=== PATIENT | female | born 1985 | race Caucasian/White ===

== ENCOUNTER 2016-11-09 09:00 | Outpatient (CLI) | payer OTHER ==
[~2016-11-09] VITALS: Ht 165.1 cm; Wt 105.6 kg
[2016-11-09] MEDS ORDERED: PRENTAB26 PO (09:35)
[2016-11-09 09:36] VITALS: Ht 165.1 cm; Wt 105.6 kg
[2016-11-09 10:09] LABS: BASO % 0.2 %; BASO ABS # 0.02 K/uL (0-0.2); COMPLETE YES; EOS % 1.1 %; HEMATOCRIT 33.9 % (37-47); IG% 0.5 %; LYMPH % 20.6 %; LYMPH ABS # 1.98 K/uL (1.2-3.4); MEAN CELL VOLUME 91.1 fL (80-100); MEAN CORPUSCULAR HEMOGLOBIN 30.9 pg (25-34); MEAN CORPUSCULAR HGB CONC 33.9 g/dl (32-36); MEAN PLATELET VOLUME 10.4 fL (7.4-10.4); MONO % 3.8 %; NEUT % 73.8 %; PLATELET COUNT 204 K/uL (130-400); RED BLOOD COUNT 3.72 M/uL (4.2-5.4); WHITE BLOOD COUNT 9.62 K/uL (4.8-10.8)
--- NOTE | 2016-11-09 10:46 | DIAGNOSTIC IMAGING REPORT ---
Limited ultrasound LIMITED (US) CLINICAL HISTORY: PLACENTA placenta location TECHNIQUE: Ultrasound COMPARISON STUDY: None FINDINGS: Posterior placenta. Partial placenta previa. No evidence for abruptio placenta. Single, viable intrauterine . Estimated gestational age 22 weeks. Amniotic fluid and neck 11.4 cm. IMPRESSION: Partial posterior placenta previa versus immediately adjacent placenta. No evidence for abruptio placenta. Electronically signed by: James Horn M.D. 11/09/2016 10:44 AM Dictated Date/Time: 11/09/2016 10:42 AM
[2016-11-09 10:49] LABS: INR 0.9 (0.9-1.1)
[2016-11-09 10:57] LABS: URINE APPEARANCE CLEAR (CLEAR); URINE BILIRUBIN NEG (NEG); URINE COLOR YELLOW; URINE EPITHELIAL CELL AUTO >30 /lpf (0-5); URINE NITRITE NEG (NEG); URINE PH 6.5 (4.5-7.5); URINE SPECIFIC GRAVITY 1.005 (1.000-1.030); UROBILINOGEN NEG (NEG); ZZUR CULT IF INDIC CLEAN CATCH NO
[2016-11-09 11:16] LABS: MANUAL MICROSCOPIC REQUIRED? NO; REVIEW REQ? NO
--- NOTE | 2016-11-09 13:43 | Discharge Instructions ---
Discharge Instructions Date of Service Nov 09, 2016. Admission Reason for Admission: Pre Term Bleeding Discharge Discharge Diagnosis / Problem: Vaginal bleeding Discharge Goals Goal(s): Continuing OB care Activity Recommendations Activity Limitations: as noted below Lifting Limitations: no more than 10 pounds May Resume Sexual Activity: after follow-up appointment Shower/Bathe: no limitations Driving or Machine Use: no limitations ACTIVITY RECOMMENDATIONS: See Labor Sheet. SPECIAL CARE INSTRUCTIONS: Call Doctor if: * Regular contractions every 5 minutes or greater than 4 contractions in one hour. * Bleeding * Water breaks or is leaking * Decreased movement * Fever >100.4 degrees F * Pain not relieved by routine measures or pain medication ordered. FOLLOW UP VISIT: Return to Labor and Delivery on for /call for appointment time . Follow-up Visit with: BRAEDEN Stock When: 11/12/16 AT 0830 . Current Hospital Diet Patient's current hospital diet: Clear Liquid Diet Discharge Diet Recommended Diet: Regular Diet Pending Studies Studies pending at discharge: yes (FOLLOW UP US) List of pending studies: FOLLOW UP US Medical Emergencies . Who to Call and When: Medical Emergencies: If at any time you feel your situation is an emergency, please call 911 immediately. . Non-Emergent Contact Non-Emergency issues call your: Surgeon Call Non-Emergent contact if: temperature is above 100.5, your pain is not controlled . . "Provider Documentation" section prepared by Domitila Ortega. . VTE Core Measure Inpt VTE Proph given/why not?: Treatment not indicated
== END 2016-11-09 13:55 | disposition home or self-care (01) ==
LOC: C.OPB 09:00 → C.LD 09:00 → C.OPB 13:55
PROVIDERS: ATTEND Obstetrics & Gynecology
DX: O46.92 Antepartum hemorrhage, unspecified, second trimester (principal); O99.212 Obesity complicating pregnancy, second trimester; E66.9 Obesity, unspecified; Z3A.22 22 weeks gestation of pregnancy

== ENCOUNTER 2017-03-20 23:36 | Inpatient (IN) | payer OTHER ==
[~2017-03-20] VITALS: Ht 165.1 cm; Wt 104.5 kg
[~2017-03-20 23:36] MED LIST: PRENTAB26 PO
[2017-03-21] MEDS ORDERED: ACETAMINOPHEN 325 MG TAB PO PRN ×2 (00:15→16:15)
[2017-03-21 00:40] VITALS: BMI 37.2
[2017-03-21] MEDS ORDERED: IV FLUIDS COMPLETED PRN (04:45)
[2017-03-21] MEDS ORDERED: LACTATED RINGER'S 1000ML 1,000 ML IV PRN (09:28)
[2017-03-21] MEDS ORDERED: LACTATED RINGER'S 1000ML 1,000 ML IV SCH ×2 (09:28→16:05)
--- NOTE | 2017-03-21 09:34 | Progress Note ---
Progress Note Date of Service Mar 21, 2017. Progress Note Admit Note 31 W F [id number] at 41 weeks with onset of labor yesterday. GDM on diet control. GBS is negative. FHT Cat 1. Cervix now 4/90/-2/vertex/soft. EFW is 8.5 lbs. Will admit in early labor and planning for epidural for pain relief.
[2017-03-21 09:55] LABS: HEMATOCRIT 37.2 % (37-47); MEAN CORPUSCULAR HEMOGLOBIN 29.8 pg (25-34); MEAN CORPUSCULAR HGB CONC 32.8 g/dl (32-36); MEAN PLATELET VOLUME 11.3 fL (7.4-10.4); PLATELET COUNT 233 K/uL (130-400); RED BLOOD COUNT 4.09 M/uL (4.2-5.4); WHITE BLOOD COUNT 9.98 K/uL (4.8-10.8)
[2017-03-21 09:58] VITALS: Ht 165.1 cm; Wt 104.5 kg
[2017-03-21] MEDS ORDERED: FENTANYL 2MCG/ML ROPIV 1.25MG/ML 100ML BAG EPI ONE (10:15)
[2017-03-21] MEDS ORDERED: BUPIVACAINE 0.25% 30 ML VIAL ONE (10:15)
[2017-03-21] MEDS ORDERED: EpHEDrine SULFATE INJ 50 MG/ML AMP ONE (10:15)
[2017-03-21] MEDS ORDERED: FENTANYL CITRATE INJ 50 MCG/1 ML 2 ML VIAL ONE (10:16)
[2017-03-21] MEDS ORDERED: LACTATED RINGER'S 1000ML 500 ML IV PRN ×2 (11:54→12:33)
[2017-03-21] MEDS ORDERED: OXYTOCIN 30 UNITS/500ML NSS IV PRN ×2 (12:00→16:15)
[2017-03-21] MEDS ORDERED: NALOXONE HCL INJ 1 MG in SODIUM CHLORIDE 0.9% 1000ML 1,000 ML IV PRN (12:33)
[2017-03-21] MEDS ORDERED: ONDANSETRON INJ 2 MG/ML 2 ML VIAL IV PRN (12:45)
[2017-03-21] MEDS ORDERED: DiphenhydrAMINE HCL 50 MG/ML VIAL IV PRN (12:45)
[2017-03-21] MEDS ORDERED: NALOXONE HCL INJ 0.4 MG/1 ML VIAL/CARP IV PRN (12:45)
[2017-03-21] MEDS ORDERED: FENTANYL 2MCG/ML ROPIV 1.25MG/ML 100ML BAG EPI PRN (12:45)
[2017-03-21] MEDS ORDERED: NALBUPHINE HCL INJ 10 MG/ML AMP IV PRN (12:45)
[2017-03-21] MEDS ORDERED: EpHEDrine SULFATE INJ 50 MG/ML AMP IV PRN (12:45)
--- NOTE | 2017-03-21 16:11 | Vaginal Delivery Summary ---
Vaginal Delivery Summary live female BETH over intact perineum with Apgars 8/9 weight pending. Delayed cord clamping followed by cord blood and spontaneous delivery of intact placenta. EBL 250 ml. No tears. Final, sponge and instrument count are correct. Mom and baby stable.
[2017-03-21] MEDS ORDERED: IBUPROFEN 600 MG TAB PO PRN (16:15)
[2017-03-21] MEDS ORDERED: BENZOCAINE 20% AER SPR 82.5 GM CAN EXT PRN (16:15)
[2017-03-21] MEDS ORDERED: LANOLIN OINT EXT PRN ×2 (16:15)
[2017-03-21] MEDS ORDERED: MEASLES, MUMPS & RUBELLA VIRUS VIAL SQ. ONE (16:15)
[2017-03-21] MEDS ORDERED: HYDROCORTISONE ACETATE 25 MG SUPP PR PRN (16:15)
[2017-03-21] MEDS ORDERED: SUPERCREAM 0.870 % 15GM JAR EXT PRN (16:15)
[2017-03-21] MEDS ORDERED: DIPHTHERIA/TETANUS/PERTUSSIS 0.5 ML SYR/VIAL IM. ONE (16:15)
--- NOTE | 2017-03-21 16:49 | Anesthesia Procedure Note ---
Anesthesia Epidural Removal Nt Date & Time Mar 21, 2017 at 16:48 Vital Signs Pain Intensity: 0.0 Notes Mental Status: alert / awake / arousable, participated in evaluation Nausea / Vomiting: adequately controlled Pain: adequately controlled Airway Patency, RR, SpO2: stable & adequate BP & HR: stable & adequate Hydration State: stable & adequate Neuraxial Anesthesia: was administered, sensory block is resolving Anesthetic Complications: no major complications apparent, pt satisfied with anesthetic care Epidural: removed without complications, with tip intact
[2017-03-21 19:00] VITALS: BP 120/70; PULSE 112; TEMP 37.1
[2017-03-21] MEDS: DOCUSATE SODIUM 100 MG CAP PO SCH (20:00)
[2017-03-22] VITALS: BP 120/78; PULSE 87; TEMP 36.9
[2017-03-22 04:35] VITALS: BP 105/55; PULSE 83; TEMP 36.9
[2017-03-22 06:00] LABS: HEMATOCRIT 30.9 % (37-47)
[2017-03-22 08:00] VITALS: BP 115/77; PULSE 87; TEMP 37.2; O2SAT 97
[2017-03-22] MEDS: DOCUSATE SODIUM 100 MG CAP PO SCH ×2 (08:48→19:42)
[2017-03-22] MEDS: PRENATAL VITAMIN TAB PO SCH (08:48)
[2017-03-22] MEDS: FERROUS SULFATE 325 MG TAB PO SCH (08:48)
--- NOTE | 2017-03-22 11:36 | OB/GYN Progress Note ---
COMMUNICATIONS ATTENDANT Progress Note Date of Service Mar 22, 2017. Subjective conversation w/ patient, physical exam Ambulation: ambulating normally Voiding: no voiding problems Passing Gas: Yes Diet Tolerance: Regular Diet Lochia: Small Feeding Type: Breast Feeding Pain: 08/30 Notes: Doing well, no concerns. Pain well controlled. Tolerating regular diet. Ambulating without difficulty. Objective Vital Signs Date Time Temp Pulse Resp B/P (MAP) Pulse Ox O2 Delivery O2 Flow Rate FiO2 03/22/17 08:00 Room Air 03/22/17 08:00 37.2 87 16 115/77 (90) 97 Room Air 03/22/17 04:35 36.9 83 16 105/55 (72) 03/22/17 00:00 Room Air 03/22/17 00:00 36.9 87 18 120/78 (92) 03/21/17 19:00 Room Air 03/21/17 19:00 37.1 112 18 120/70 (87) Physical Exam General Appearance: WELL-APPEARING Respiratory/Chest: chest non-tender, lungs clear Cardiovascular: regular rate, rhythm Abdomen: normal bowel sounds, soft Fundus: Firm Extremities: normal range of motion, non-tender, no calf tenderness Laboratory Results Last 24 Hours Test 03/22/17 05:34 Hemoglobin 9.9 g/dL Hematocrit 30.9 % Assessment and Plan Post- Day Number: 1 Continue Routine Care: -Continue routine care -Anticipate D/C home tomorrow.
[2017-03-22 11:45] VITALS: BP 129/74; PULSE 82; TEMP 37.2; O2SAT 95
[2017-03-22 16:15] VITALS: BP 109/73; PULSE 100; TEMP 37.1; O2SAT 96
[2017-03-22] MEDS ORDERED: BISACODYL 5 MG TABEC PO ONE (20:00)
[2017-03-23 00:25] VITALS: BP 118/77; PULSE 92; TEMP 36.8; O2SAT 95
[2017-03-23] MEDS ORDERED: BISACODYL 10 MG SUPP PR PRN (07:00)
[2017-03-23] MEDS: DOCUSATE SODIUM 100 MG CAP PO SCH (08:33)
[2017-03-23] MEDS: FERROUS SULFATE 325 MG TAB PO SCH (08:33)
[2017-03-23] MEDS: PRENATAL VITAMIN TAB PO SCH (08:34)
[2017-03-23 09:35] VITALS: BP 110/68; PULSE 87; TEMP 36.7; O2SAT 95
--- NOTE | 2017-03-23 09:38 | OB/GYN Progress Note ---
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 Patient is seen and examined. She feels well, no complaints. Likes to be discharged Ambulating without dizziness Voiding without difficulty Tolerating regular diet with out N&V Bleeding is minimal No fever/ chills/ CP/ SOB/ N&V/ Leg pain Breast feeding without problems Discussed contraception She likes to talk to her valet runner oncologist to decide on that H/o ovarian neoplasm and CAH of endometrium Date Time Temp Pulse Resp B/P (MAP) Pulse Ox O2 Delivery O2 Flow Rate FiO2 03/23/17 00:25 36.8 92 18 118/77 (91) 95 Room Air 03/23/17 00:25 Room Air 03/22/17 16:15 37.1 100 18 109/73 (85) 96 Room Air 03/22/17 16:15 Room Air 03/22/17 11:45 37.2 82 18 129/74 (92) 95 Room Air Test 03/20/17 23:49 03/21/17 09:37 03/22/17 05:34 POC Glucose 81 White Blood Count 9.98 Red Blood Count 4.09 L Hemoglobin 12.2 9.9 L Hematocrit 37.2 30.9 L Mean Corpuscular Volume 91.0 Mean Corpuscular Hemoglobin 29.8 Mean Corpuscular Hemoglobin Concent 32.8 RDW Standard Deviation 49.0 H RDW Coefficient of Variation 14.6 H Platelet Count 233 Mean Platelet Volume 11.3 H PE: General: Alert, orientedx3, NAD Abd: soft, NT, fundus firm, below Umbilicus Perineum intact, Lochia rubra minimal Ext; NT, no edema AP: 31 yo s/p , ppd# 2 VSS Afebrile doing well Continue routine care All questions were answered D/C home , f/u in office
[2017-03-23] MEDS ORDERED: FRRS300 PO (09:39)
[2017-03-23] MEDS ORDERED: CLC100 PO (09:39)
[2017-03-23] MEDS ORDERED: MTR600X PO (09:39)
--- NOTE | 2017-03-23 09:40 | Discharge Instructions ---
Discharge Instructions Date of Service Mar 23, 2017. Admission Reason for Admission: Prolonged Latent Phase Of Labor Discharge Discharge Diagnosis / Problem: Discharge Goals Goal(s): Routine recovery after delivery Activity Recommendations Activity Limitations: as noted below ACTIVITY RECOMMENDATIONS: * Gradual return to full activity over the next 2-3 weeks. * No lifting - nothing heavier than baby over the next 2-3 weeks. * Do not engage in vigorous exercise, sexual activity or sports until cleared by your physician. * Do not drive or operate any motorized equipment until cleared by your physician. * You may shower/bathe daily. BREAST CARE: If you are not breast feeding: * Wear a supportive bra 24 hours a day for one to two weeks. * Avoid stimulating your breasts and nipples as much as possible during the first few weeks after delivery. * When taking a shower, have the warm water hit your back, not breasts. * When your breasts feel full, apply ice packs. Usually three to four times a day helps ease the discomfort. * Take a mild pain medication (Tylenol/Motrin) when you are uncomfortable. If breast feeding: * Use breast milk to lubricate nipples. Lansinoh cream may be used for sore nipples. You do not need to remove cream prior to breast feeding. If using a different brand of cream, check the label for directions regarding removal of cream prior to nursing. * Wear a supportive bra. * If having problems with breasts or breast feeding, call a systems development consultant or your health care provider. EPISIOTOMY CARE: After delivery, if you have an episiotomy (stitches), the following steps will ease discomfort and aid healing. * For the first 24 hours after delivery, place ice packs next to your episiotomy to help reduce swelling. * After the first 24 hour-period, sitz baths, either portable or in the tub, are suggested. A shower with a shower arm sprayed over the episiotomy may be comforting. * Jessy care should be done after each voiding and bowel movement. Squirt warm water from a plastic bottle over the perineum (region of the body between the anus and urinary opening) and pat dry. * Use Dermoplast to ease discomfort. Shake container. [place] directly over the episiotomy. * Place a Tucks on a clean sanitary pad next to your episiotomy. OVER THE COUNTER MEDICATION: * For discomfort or pain, you may use Acetaminophen (Tylenol), Ibuprofen (Advil ), or Naproxen (Aleve) following the package directions. * For constipation you may use Colace following the package directions. SPECIAL CARE INSTRUCTIONS: When you are discharged from the hospital, it is important for you to follow the instructions listed below: * During the first week at home, you should be able to care for yourself and your baby. In addition, the usual light household activities are encouraged. * Limit your activities to the way you feel. Do not try to clean the house or move furniture. Be sensible. * If you actively engage in sports and have done so up until the time of your delivery, you may resume these activities as soon as you feel able. This may take up to one month or even longer. Use good judgment. * Continue to take your vitamins for at least six weeks after the of your baby. * Your diet need not be limited unless you were on a special diet before your delivery. Breast-feeding mothers need around 2500 calories per day and at least 64-80 ounces of fluid per day (8 to 10 glasses). * You should eat foods from the four major food groups. Crash diets or fad diets are to be avoided. Eating lean meats, fresh fruits and vegetables, low-fat dairy products, high fiber foods and a regular exercise program, will help you get back to your pre- weight without putting your health at risk. * Constipation is sometimes a problem after delivery. Take a mild laxative as needed. If breast feeding, Milk of Magnesia is acceptable to use. You may use a suppository or Fleets enema if no episiotomy. * A daily shower or tub bath is suggested. Be sure to thoroughly and gently dry the perineum. * A bloody vaginal discharge will usually continue until around four weeks post . A small amount of bleeding may continue for as long as six weeks. Vaginal discharge changes from the bright red bleeding after delivery to pink then brownish and finally yellowish-pink before becoming white and disappearing. * Bleeding may increase with activity. Your first period may come in 4-8 weeks. If you are breast feeding, your period may be delayed even longer. * [place] (sex) can begin whenever both you and your partner feel comfortable and do not have any form of genital infection. It is recommended that you wait until after your return appointment and discuss with your physician. If you have questions, please talk to your health care practitioner. A condom should be used to prevent infection and . * Foreplay, gentle intercourse and lubrication is very important the first several times to prevent pain. A water-based lubricant such as K-Y jelly or Astroglide may be used. * Tampons may be used six weeks after delivery. * Douching should be avoided for 6 weeks after delivery. * If you have RH negative blood and your baby is RH positive, you will receive RHOGAM by injection prior to discharge. The nurse will give you a card to keep with you that has the date and place that you received RHOGAM after delivery. * During your care, you had a Rubella screen done to check for the presence of rubella antibodies in your blood. If your test was negative, you will receive a Rubella vaccine prior to discharge. This vaccine may cause a fever, soreness at the injection site and flu-like symptoms. If these symptoms persist, notify your health care practitioner. is not advised for three months after a Rubella vaccine. There is a higher chance of having a baby with defects if conceived within three months of getting the vaccine. * If you were discharged 24 hours from delivery or before 48 hours: Visiting nurses will come to your home 48 hours after discharge to assess you and your baby. The visiting nurse will meet with you while you are in the hospital to arrange a time and get directions to your home. * Verbalizes understanding of car seat law as reviewed with patient nursing. * Car Seat hand-out given and reviewed with patient by nursing. * Shaken baby information reviewed with patient by nursing. Call you doctor if: * Heavy bleeding (saturating several pads an hour) or passing clots the size of your fist. * A fever >101 degrees F (38.3 degrees C) on two occasions four hours apart and/or chills. * Unusual pain in the pelvic or vaginal areas. * "Baby Blues" lasting longer than two weeks. If you have any questions or concerns, call your health care practitioner at . FOLLOW-UP VISIT: * Please call the office at to schedule a 6 week examination. It is important you keep this appointment. * It is important for you to make arrangements for either yearly or twice yearly check-ups thereafter. . Current Hospital Diet Patient's current hospital diet: Regular Diet Discharge Diet Recommended Diet: Regular Diet Pending Studies Studies pending at discharge: no Medical Emergencies . Who to Call and When: Medical Emergencies: If at any time you feel your situation is an emergency, please call 911 immediately. . Non-Emergent Contact Non-Emergency issues call your: Surgeon, Specialist Call Non-Emergent contact if: temperature is above 100.5, your pain is not controlled, your pain is worsening . . "Provider Documentation" section prepared by Domitila Ortega. . VTE Core Measure Inpt VTE Proph given/why not?: Treatment not indicated
== END 2017-03-23 12:21 | disposition home or self-care (01) | DRG 775 ==
LOC: C.OPB 23:36 → C.LD 23:36 → C.OPB 03-21 04:06 → OBSVTOIN 03-21 09:30 → C.OBG 03-21 18:59
PROVIDERS: ADMIT Obstetrics & Gynecology; ATTEND Obstetrics & Gynecology
PROC: 10E0XZZ Delivery of Products of Conception, External Approach (ICD-10-PCS; principal; 2017-03-21)
DX: O48.0 Post-term pregnancy (principal); O24.420 Gestational diabetes mellitus in childbirth, diet controlled; Z3A.40 40 weeks gestation of pregnancy; O99.214 Obesity complicating childbirth; Z68.38 Body mass index [BMI] 38.0-38.9, adult

== ENCOUNTER 2022-06-02 17:05 | Inpatient (IN) ==
--- NOTE | 2022-06-04 09:16 | History & Physical Report ---
Date of Service June 04, 2022 Assessment & Plan (1) Post-dates : Plan: 36-year-old -0-0-2 at 41 weeks and 3 days of gestation with gestational diabetes, diet-controlled, obesity, LGA Vital signs stable afebrile heart rate reassuring, Cervix unfavorable with no presenting part presenting part in pelvic, confirmed vertex by US but very high Estimated weight 4700 g, discussed the findings with the patient as with gestational diabetes, postdates, macrosomia and increased risk of shoulder dystocia. ACOG recommendation of primary with EFW of over 4500 g with diabetes. Discussed shoulder dystocia may cause nerve injury, fractures, and brachyal plexus palsy, asphyxia, hypoxic ischemic brain injury of infant. Understands EFW with US is not 100% accurate, up to 10-15% of false rate. Patient desires to think about this and decide. All questions were answered. (2) Gestational diabetes mellitus (GDM) affecting , antepartum: (3) Obesity affecting in third trimester, antepartum: (4) LGA (large for gestational age) fetus affecting mother, antepartum: Admission and Anticipated Discharge Date Admission Date: June 04, 2022 History of Present Illness Primary Care Provider: NO PCP Patient is a 36-year-old -0-0-2 at 41 weeks and 3 days of gestation who is presenting today for induction of labor for postdates, GDM A1, obesity. She has no complaints, no contractions, leakage of fluid, vaginal bleeding. She reports good movements. She was scheduled for induction on , 2 days ago but she declined to come in because she thought she was in early labor with contractions which then stopped. Patient politely declined induction of labor since 39 weeks per records. Her has been complicated by, 1.Obesity, 2. Gestational diabetes, diet controlled , she has not been doing fingersticks, they have been normal for her, 3. LGA, last ultrasound was done at 37 weeks and baby was over 90th percentile, 4. History of ovarian cancer and complex endometrial hyperplasia, status post excision of right adnexal mass patient has been followed by mortgage loan officer originator and she has been cleared. 5. Advanced maternal age, declined MFM consultation. Allergies Allergy/AdvReac Type Severity Reaction Status Date / Time No Known Allergies Allergy Unverified 03/21/17 00:41 Home Medications Medication Instructions Recorded Confirmed Type Multivit/Min/Iron/Fol Ac/Pren 1 tab PO DAILY #0 tabs 11/09/16 06/04/22 History ( Vitamin) Docusate Sodium 100 mg PO BID #60 caps 03/23/17 06/04/22 Rx Patient History Social History Smoking Status: Never smoker Hx Alcohol Use: No Hx Substance Use: No Preferred Language: German Communication Ability: Effective Steam Setter Required: No Beliefs That Will Affect Care: None marital status: Current Living Situation: Spouse Other Information That Helps Us Care for You: No Feels Safe at Home: Yes Safety Concerns: Feels Safe At This Time Assistive Devices: None OB History Full-term in 2011, 41 weeks, 8 pounds 10 ounces, no complications, Full-term in 2017, 45 weeks, 9 pound 3 ounces, gestational diabetes, no shoulder dystocia CLIENT DEVELOPMENT MANAGER History No history of STDs, no history of herpes, chlamydia NOR gonorrhea Review of Systems as per Subjective / HPI Physical Exam Constitutional: WD/WN, vitals as above well developed, well nourished, + obese and comfortable Gastrointestinal (Abdomen): normal bowel sounds, soft, nontender, no hepatosplenomegaly (Gravid, obese) Genitourinary: normal external appearance Manual OB Exam: + cervical dilation fingertip, + cervical effacement 10% and + station high (No presenting part in pelvis) OB Exam Monitor Tracing: + external uterine monitor used and + category I Bedside ultrasound was done by myself, vertex presentation, all the measurements are over 41 weeks, estimated weight 4700 g, placenta anterior, amniotic fluid volume is normal. Results & Data ([facility]) Vital Signs (Past 12 Hours) Vital Signs Temp Pulse Resp BP 06/04/22 07:59 36.7 C 18 06/04/22 08:22 130 H 130/83 06/04/22 07:51 107 H 162/92 H (1) Post-dates Post-term type: 40-42 weeks gestation Qualified Code(s): O48.0 - Post-term
[2022-06-04] MEDS ORDERED: SODIUM CHLORIDE 0.9% 250 ML IV PRN (09:29)
[2022-06-04 09:46] LABS: Basophils # (auto) 0.03 K/uL (0-0.2); Basophils % (auto) 0.3 %; Eosinophils # (auto) 0.07 K/uL (0-0.50); Eosinophils % (auto) 0.8 %; Hemoglobin 12.7 g/dl (12.0-16.0); Immature Granulocytes # (auto) 0.07 K/uL (0.00-0.02); Immature Granulocytes % (auto) 0.8 %; Lymphocytes # (auto) 1.86 K/uL (1.2-3.4); Lymphocytes % (auto) 21.1 %; Mean Corpuscular Hemoglobin 30.4 pg (25.0-34.0); Mean Corpuscular Hgb Conc 34.3 g/dL (32.0-36.0); Mean Corpuscular Volume 88.5 fL (80.0-100.0); Mean Platelet Volume 11.9 fL (9.4-12.3); Monocytes % (auto) 6.8 %; Neutrophils % (auto) 70.2 %; Platelet Count 203 K/uL (130-400); RDW Coefficient of Variation 13.4 % (11.5-14.5); RDW Standard Deviation 43.5 fL (36.4-46.3); Red Blood Count 4.18 M/uL (3.93-5.22); White Blood Count 8.83 K/ul (4.8-10.8)
[2022-06-04] MEDS ORDERED: LIDOCAINE 1% LOCAL 20 ML VIAL INFIL PRN (09:49)
[2022-06-04] MEDS ORDERED: OXYTOCIN 30 UNITS/500 ML BAG IV PRN (09:49)
[2022-06-04 10:23] LABS: Albumin Globulin Ratio 1.2 (0.9-2); Albumin Level 3.4 gm/dl (3.4-5.0); BUN Creatinine Ratio 18.9 (10-20); Bilirubin,Total 0.3 mg/dl (0.2-1.0); Calcium 8.9 mg/dl (8.5-10.1); Creatinine Clr Calc Pharmacy 132.1 ml/min; Est GFR (African American) 119.1 ml/min; Est GFR (Non-African American) 102.8 ml/min; Globulin 2.9 gm/dl (2.5-4.0); Potassium 3.7 mmol/L (3.5-5.1); Total Protein 6.3 gm/dl (6.0-8.3)
[2022-06-04 12:22] LABS: Estimated Average Glucose 114 mg/dl; Hemoglobin A1C 5.6 % (4.5-5.6)
[2022-06-04] MEDS ORDERED: DINOPROSTONE 10 MG INSERT PV ONE (13:15)
--- NOTE | 2022-06-04 13:16 | Ultrasound Report ---
ULTRASOUND LIMITED CLINICAL HISTORY: Suspect macrosomia. COMPARISON STUDY: No priors. FINDINGS: Real-time grayscale and color Doppler sonography of the fetus and gravid uterus is performed. There i s a single live uterine gestation with a heart rate of 155 bpm. Positioning is cephalic. The placenta is located laterally on the left and grossly unremarkable. The cervix is not well visualized. The la rgest pocket of amniotic fluid measures 10.1 cm. Femoral length measures 8.47 cm. This measurement is out of range for calculation of dates. The abdominal circumference measures 36.67 cm corresponding to an estimated age of 40 weeks 4 days. The biparietal diameter measures 10.29 cm which is out of range for calculation of dates. The head circumference measures 37.55 cm which is out of range for calculation of dates. weight is estimated at 4607 g +/-691 g. Estimation of dates is 40 weeks 5 days +/- 3 weeks 5 days. IMPRESSION: 1. There is a single live intrauterine gestation with measurements as above. 2. The largest pocket of amniotic fluid measures 10.1 cm. 3. Note that this does not constitute a dedicated anatomic scan. Dictated: 06/04/2022 11:56 AM Transcribed: 06/04/2022 12:56 PM Alvina [id number] [email or web address] Electronically signed by: Yung Padgett M.D. 06/04/2022 1:15 PM
--- NOTE | 2022-06-04 13:27 | Obstetrical Progress Note ---
Date of Service June 04, 2022 Assessment & Plan Admission and Anticipated Discharge Date Admission Date: June 04, 2022 Subjective Patient is back from ultrasound. There is a single live uterine gestation with a heart rate of 155 bpm. Positioning is cephalic. The placenta is located laterally on the left and grossly unremarkable. The cervix is not well visualized. The largest pocket of amniotic fluid measures 10.1 cm. Femoral length measures 8.47 cm. This measurement is out of range for calculation of dates. The abdominal circumference measures 36.67 cm corresponding to an estimated age of 40 weeks 4 days. The biparietal diameter measures 10.29 cm which is out of range for calculation of dates. The head circumference measures 37.55 cm which is out of range for calculation of dates. weight is estimated at 4607 g +/-691 g. Estimation of dates is 40 weeks 5 days +/- 3 weeks 5 days. Discussed the results above EFW over 4500 g and recommend with gestational diabetes. Patient understands the risks of shoulder dystocia including but not limited to clavicle fracture, nerve injury, asphyxia even . She politely declines and desires trial of vaginal . Understands the presenting part is high and cervix is not favorable she will need cervical ripening. Plan to give her lunch and then start cervical ripening with Cervidil. All questions were answered. Results & Data ([facility]) Vital Signs (Past 12 Hours) Vital Signs Temp Pulse Resp BP 06/04/22 07:59 36.7 C 18 06/04/22 11:42 16 06/04/22 11:42 36.6 C 16 06/04/22 11:46 94 H 139/89 06/04/22 08:22 130 H 130/83 06/04/22 07:51 107 H 162/92 H
[2022-06-04] MEDS: LACTATED RINGER'S 1,000 ML IV PRN ×3 (18:12→23:42)
[2022-06-04] MEDS ORDERED: BUTORPHANOL TARTRATE 1 MG/ML VIAL IV PRN (19:46)
--- NOTE | 2022-06-04 20:02 | Obstetrical Progress Note ---
Date of Service June 04, 2022 Assessment & Plan Admission and Anticipated Discharge Date Admission Date: June 04, 2022 Subjective Patient is reevaluated. Cervidil was placed at 14:45 and started to have cramping, contractions arpund 6 pm, received bolus of IVF and they got better, pain is 5-6/10 No LOF/VB + FM'S FHR categ I VE; 3/ 30%/ -2, head is definitely down, tight bulging bag, cervidil is in place Continue to monitor closely IV Stadol for pain now and then Epidural Results & Data ([facility]) Vital Signs (Past 12 Hours) Vital Signs Temp Pulse Resp BP 06/04/22 19:00 18 06/04/22 19:00 36.9 C 18 06/04/22 19:04 83 130/80 06/04/22 14:47 83 18 109/61 06/04/22 11:42 16 06/04/22 11:42 36.6 C 16 06/04/22 11:46 94 H 139/89 06/04/22 08:22 130 H 130/83
[2022-06-04] MEDS ORDERED: SODIUM CHLORIDE 0.9% INJ 10 ML VIAL ONE (22:06)
[2022-06-04] MEDS ORDERED: ePHEDrine sulfate 50 MG/ML AMP ONE (22:06)
[2022-06-04] MEDS ORDERED: fentaNYL citrate 100 MCG/2 ML VIAL ONE (22:06)
[2022-06-04] MEDS ORDERED: fentaNYL 2MCG/ML ROPIVACAINE 1.25MG/ML 100 ML BAG EPI ONE (22:07)
[2022-06-04] MEDS ORDERED: LIDOCAINE 2%/EPINEPHRINE 1:200,000 20 ML SDV ONE (22:07)
[2022-06-04] MEDS ORDERED: BUPIVACAINE 0.25% 30 ML VIAL ONE (22:07)
[2022-06-04] MEDS ORDERED: NALOXONE HCL 1 MG in SODIUM CHLORIDE 0.9% 1000ML 1,000 ML IV PRN (23:00)
[2022-06-04] MEDS ORDERED: diphenhydrAMINE 50 MG/ML VIAL IV PRN (23:00)
[2022-06-04] MEDS ORDERED: ONDANSETRON INJ 2 MG/ML 2 ML VIAL IV PRN (23:00)
[2022-06-04] MEDS ORDERED: NALOXONE HCL 0.4 MG/1 ML VIAL/CARP IV PRN (23:00)
[2022-06-04] MEDS ORDERED: ePHEDrine sulfate 50 MG/ML AMP IV PRN (23:00)
[2022-06-04] MEDS ORDERED: fentaNYL 2MCG/ML ROPIVACAINE 1.25MG/ML 100 ML BAG EPI PRN (23:00)
[2022-06-04] MEDS ORDERED: NALBUPHINE HCL INJ 10 MG/ML AMP IV PRN (23:00)
--- NOTE | 2022-06-04 23:00 | Anesthesiology Consultation ---
Date of Service June 04, 2022 Assessment & Plan ASA ASA2 Proposed Anesthesia Anesthesia Type: Labor Epidural Risk / Benefits Reviewed With: PT / POA / Parent / Guardian, Accepts Plan and Informed Consent Obtained History Height/Weight Height: 5 ft 5 in Weight: 117.48 kg Allergies Allergy/AdvReac Type Severity Reaction Status Date / Time No Known Allergies Allergy Unverified 03/21/17 00:41 Medications Home Medications Medication Instructions Recorded Confirmed Last Taken Multivit/Min/Iron/Fol Ac/Pren 1 tab PO DAILY #0 tabs 11/09/16 06/04/22 06/02/22 ( Vitamin) Docusate Sodium 100 mg PO BID #60 caps 03/23/17 06/04/22 06/02/22 Active Medications Generic Name Dose Route Start Last Admin Trade Name Freq PRN Reason Stop Dose Admin Butorphanol Tartrate 1 mg 06/04/22 19:46 06/04/22 20:35 Butorphanol Tartrate 1 Mg/Ml Vial IV 07/04/22 19:45 1 mg Q3HWA PRN Administration Pain Lactated Ringer's 1,000 mls @ 150 mls/hr 06/04/22 09:49 06/04/22 22:45 Lr IV 06/06/22 09:48 150 mls/hr .[id number] PRN Infusion L&D Protocol Protocol Exercise / Class Metabolic Activity II 4-5 Yardwork/Stairs/Walk up hill Past Anesthesia History No Hx of Anesthesia Complications and No Family Hx of Anesthesia Complications History of PONV No Hx of PONV and No Hx of Motion Sickness Social History Smoking Status: Never smoker Hx Alcohol Use: No Hx Substance Use: No Review of Systems denies fever/cough/ colds/ chest pain/ SOB/ MATTEO denies MATTEO Physical Exam Vital Signs Last Vital Signs Temp 36.9 C 06/04/22 19:00 Pulse 99 H 06/04/22 22:56 Resp 22 06/04/22 22:50 BP 143/63 H 06/04/22 22:58 Pulse Ox 100 06/04/22 22:54 ENMT Mouth: no TMJ abnormality and no dentition abnormality Thyromental Distance: > or= 3.5 Finger Breadths Mallampati Class: II Neck neck extension not limited Respiratory normal respiratory effort; no respiratory distress Auscultation: lungs clear to auscultation bilaterally Cardiovascular Rate/Rhythm: regular rate and regular rhythm Neurologic moves all extremities Psychiatric Orientation: alert and oriented x 3 Testing Laboratory Results 06/04/22 09:20 06/04/22 09:20 Hemoglobin A1c 5.6 % (4.5-5.6) 06/04/22 09:20 Blood Type O Positive 06/04/22 09:20 Antibody Screen NEGATIVE 06/04/22 09:20 06/04/22 06/04/22 20:34 16:39 POC Glucose 79 89
--- NOTE | 2022-06-04 23:27 | Obstetrical Progress Note ---
Date of Service June 04, 2022 Assessment & Plan Admission and Anticipated Discharge Date Admission Date: June 04, 2022 Subjective Patient had SROM with light meconium fluid and then got more painful. Epidural was placed about 20 min ago, still painful. VE; 6-7 cm/ 80%/-1 FHR categ I Contractions q 2-[address] Pimentel is going to talk to her about doing spinal Continue to monitor closely Results & Data ([facility]) Vital Signs (Past 12 Hours) Vital Signs Temp Pulse Resp BP Pulse Ox 06/04/22 23:19 76 129/58 L 99 06/04/22 23:14 93 H 99 06/04/22 23:09 86 100 06/04/22 23:04 83 99 06/04/22 23:03 86 123/78 06/04/22 23:00 91 H 22 131/57 L 06/04/22 22:59 96 H 100 06/04/22 22:58 88 143/63 H 06/04/22 22:56 99 H 138/63 06/04/22 22:54 100 06/04/22 22:54 98 H 06/04/22 22:54 95 H 121/76 06/04/22 22:52 91 H 109/68 06/04/22 22:49 97 H 99 06/04/22 22:50 94 H 22 110/64 06/04/22 22:44 85 100 06/04/22 22:39 81 99 06/04/22 22:34 99 06/04/22 22:34 84 06/04/22 22:34 80 94 06/04/22 22:29 86 98 06/04/22 22:24 81 100 06/04/22 22:21 75 133/77 06/04/22 22:19 77 100 06/04/22 22:14 105 H 98 06/04/22 19:00 18 06/04/22 19:00 36.9 C 18 06/04/22 19:04 83 130/80 06/04/22 14:47 83 18 109/61 06/04/22 11:42 16 06/04/22 11:42 36.6 C 16 06/04/22 11:46 94 H 139/89
--- NOTE | 2022-06-05 00:01 | Communication Note ---
Date of Service: June 04, 2012 pt still painful after epidural. Pt unable to tolerate epidural placement. I decided to place a spinal. sterile prep/drape/gloves/mask. L3-l4 interspace. 25 gauge pencan advanced. csf free flowing. 1cc of 0.25% bupivicaine injected. no complications at this time.
--- NOTE | 2022-06-05 00:33 | Obstetrical Progress Note ---
Date of Service June 05, 2022 Assessment & Plan Admission and Anticipated Discharge Date Admission Date: June 04, 2022 Subjective Patient received spinal for pain, still feels contractions but not as painful as before. She is lying on her side and denies pressure nor urge to push. Continue to monitor closely. Nursing team is aware of LGA and possible impending shoulder dystocia. Results & Data ([facility]) Vital Signs (Past 12 Hours) Vital Signs Temp Pulse Resp BP Pulse Ox 06/05/22 00:29 70 91 06/05/22 00:00 20 06/05/22 00:00 20 06/05/22 00:24 68 91 06/05/22 00:19 69 92 06/05/22 00:20 68 172/83 H 06/05/22 00:14 70 93 06/05/22 00:09 69 91 06/05/22 00:07 69 88 L 06/05/22 00:04 73 99/57 L 97 06/04/22 23:59 78 96 06/04/22 23:54 73 89 L 06/04/22 23:49 66 91 06/04/22 23:50 70 20 94/53 L 88 L 06/04/22 23:40 20 06/04/22 23:40 36.7 C 20 06/04/22 23:44 69 95 06/04/22 23:43 77 131/51 L 06/04/22 23:39 84 100 06/04/22 23:34 79 121/59 L 99 06/04/22 23:29 93 H 98 06/04/22 23:26 89 82 L 06/04/22 23:24 75 97 06/04/22 23:19 76 129/58 L 99 06/04/22 23:14 93 H 99 06/04/22 23:09 86 100 06/04/22 23:04 83 99 06/04/22 23:03 86 123/78 06/04/22 23:00 91 H 22 131/57 L 06/04/22 22:59 96 H 100 06/04/22 22:58 88 143/63 H 06/04/22 22:56 99 H 138/63 06/04/22 22:54 100 06/04/22 22:54 98 H 06/04/22 22:54 95 H 121/76 06/04/22 22:52 91 H 109/68 06/04/22 22:49 97 H 99 06/04/22 22:50 94 H 22 110/64 06/04/22 22:44 85 100 06/04/22 22:39 81 99 06/04/22 22:34 99 06/04/22 22:34 84 06/04/22 22:34 80 94 06/04/22 22:29 86 98 06/04/22 22:24 81 100 06/04/22 22:21 75 133/77 06/04/22 22:19 77 100 06/04/22 22:14 105 H 98 06/04/22 19:00 18 06/04/22 19:00 36.9 C 18 06/04/22 19:04 83 130/80 06/04/22 14:47 83 18 109/61
[2022-06-05] MEDS ORDERED: DIPHTHERIA/TETANUS/PERTUSSIS 0.5mL SYR/VIAL (Age 7+yrs) IM ONE (01:34)
[2022-06-05] MEDS ORDERED: METHYLERGONOVINE MALEATE 0.2 MG/ML AMP IM ONE (01:34)
[2022-06-05] MEDS ORDERED: HYDROCORTISONE ACETATE 25 MG SUPP PR PRN (01:34)
[2022-06-05] MEDS ORDERED: OXYTOCIN 30 UNITS/500 ML BAG IV PRN (01:34)
[2022-06-05] MEDS ORDERED: oxyCODONE/ACETAMINOPHEN 5mg/325mg TAB PO PRN (01:34)
[2022-06-05] MEDS ORDERED: BENZOCAINE 20% AER SPR 82.5 GM CAN EXT PRN (01:34)
[2022-06-05] MEDS ORDERED: MEASLES, MUMPS & RUBELLA VIRUS VIAL SQ ONE (01:34)
[2022-06-05] MEDS ORDERED: bisacodyL 10 MG SUPP PR PRN (01:34)
[2022-06-05] MEDS ORDERED: ACETAMINOPHEN 325 MG TAB PO PRN (01:34)
--- NOTE | 2022-06-05 01:39 | Delivery Summary ---
Vaginal Delivery Summary Date of Service June 05, 2022 Vaginal Delivery Summary Patient felt pressure and desire to push. She was found to be fully dilated and head was at +3 station, the caput was visible at the introitus. She pushed through 1 contraction and delivered the head without difficulty. The shoulders came right after the head without any traction easily. The baby was handed off to the mother where mouth and nose were suctioned, the cord was clamped times and cut at 1 minute delay. The baby is vigorously moving and crying at that point. Then the vagina and perineum were checked for lacerations. There was a small first-degree laceration at the posterior fourchette. It was repaired with 2-0 Vicryl in a running fashion and excellent hemostasis was achieved. Rest of the vagina and labia were intact. The placenta was found to be the vagina, delivered spontaneously as intact and complete. Uterus was explored and found to be empty, the lower segment was cleared of all clots and debris's and IV oxytocin was started. Fundus became firm and EBL was 200 mL. The mom and the baby tolerated procedure well, the sponge needle and instrument count was correct x2. Baby was a viable female infant, Apgars 7/8 and weight is pending. No complications happened and I was present during whole procedure.
[2022-06-05] MEDS ORDERED: METHYLERGONOVINE MALEATE 0.2 MG/ML AMP ONE (01:53)
--- NOTE | 2022-06-05 02:03 | Anesthesia Procedure Note ---
Date of Service June 05, 2022 Anesthesia Post Epidural Note Vital Signs Vital Signs: Temp Pulse Resp BP Pulse Ox 36.6 C 78 18 114/55 L 99 06/05/22 01:25 06/05/22 01:49 06/05/22 01:40 06/05/22 01:49 06/05/22 00:59 Pain Intensity Bilateral Abdomen: Pain Intensity: 8 Notes Mental Status: alert / awake / arousable and participated in evaluation Nausea / Vomiting: adequately controlled Pain: adequately controlled Airway Patency, RR, SpO2: stable & adequate BP & HR: stable & adequate Hydration State: stable & adequate Neuraxial Anesthesia: was administered and sensory block is resolving Anesthetic Complications: no major complications apparent and Pt Satisfied with anesthetic care Epidural: Removed without complications and With tip intact
[2022-06-05] MEDS: IBUPROFEN 600 MG TAB PO PRN ×4 (03:43→23:43)
[2022-06-05] MEDS: PRENATAL VITAMIN 1 TAB PO SCH (07:51)
[2022-06-05] MEDS: FERROUS SULFATE 325 MG TAB PO SCH (07:52)
[2022-06-05] MEDS: DOCUSATE SODIUM 100 MG CAP PO SCH ×2 (07:52→20:52)
[2022-06-06 06:35] LABS: Hematocrit (blood only) 30.6 % (34.1-44.9); Hemoglobin 10.2 g/dl (12.0-16.0); Mean Corpuscular Hemoglobin 30.2 pg (25.0-34.0); Mean Corpuscular Hgb Conc 33.3 g/dL (32.0-36.0); Mean Corpuscular Volume 90.5 fL (80.0-100.0); Platelet Count 148 K/uL (130-400); RDW Coefficient of Variation 13.6 % (11.5-14.5); RDW Standard Deviation 44.8 fL (36.4-46.3); Red Blood Count 3.38 M/uL (3.93-5.22); White Blood Count 11.59 K/ul (4.8-10.8)
--- NOTE | 2022-06-06 07:24 | Obstetrical Progress Note ---
Date of Service June 06, 2022 Assessment & Plan (1) Normal course: Continue routine PP course Plan to d/c if baby is discharged Precautions given (2) Gestational diabetes mellitus (GDM) affecting , antepartum: Subjective Ambulation: ambulating normally Voiding: no voiding problems Passing Gas:: Yes Diet Tolerance:: regular diet Lochia:: Small Feeding Type:: breast feeding Current Pain Level(1-10): 0 Doing well, no complaints. Home today if baby is discharged Physical Exam Constitutional WD/WN, vitals as above Respiratory normal respiratory effort, lungs clear to auscultation Cardiovascular RRR, no murmur, no edema Gastrointestinal (Abdomen) normal bowel sounds, soft, nontender, no hepatosplenomegaly Skin no rashes, warm and dry Results & Data ([facility]) Vital Signs (Past 12 Hours) Vital Signs Temp Pulse Resp BP Pulse Ox O2 Del Method 06/05/22 23:04 36.5 C 81 18 120/88 100 Room Air Laboratory Results Laboratory Results WBC 11.59 K/ul (4.8-10.8) H 06/06/22 06:02 RBC 3.38 M/uL (3.93-5.22) L 06/06/22 06:02 Hgb 10.2 g/dl (12.0-16.0) L 06/06/22 06:02 Hct 30.6 % (34.1-44.9) L 06/06/22 06:02 MCV 90.5 fL (80.0-100.0) 06/06/22 06:02 MCH 30.2 pg (25.0-34.0) 06/06/22 06:02 MCHC 33.3 g/dL (32.0-36.0) 06/06/22 06:02 RDW Std Deviation 44.8 fL (36.4-46.3) 06/06/22 06:02 RDW Coeff of Ellen 13.6 % (11.5-14.5) 06/06/22 06:02 Plt Count 148 K/uL (130-400) 06/06/22 06:02 MPV 12.0 fL (9.4-12.3) 06/06/22 06:02 Immature Gran % (Auto) 0.8 % 06/04/22 09:20 Neut % (Auto) 70.2 % 06/04/22 09:20 Lymph % (Auto) 21.1 % 06/04/22 09:20 [place] % (Auto) 6.8 % 06/04/22 09:20 Eos % (Auto) 0.8 % 06/04/22 09:20 Baso % (Auto) 0.3 % 06/04/22 09:20 Neut # (Auto) 6.20 K/uL (1.4-6.5) 06/04/22 09:20 Lymph # (Auto) 1.86 K/uL (1.2-3.4) 06/04/22 09:20 [place] # (Auto) 0.60 K/uL (0.24-0.82) 06/04/22 09:20 Eos # (Auto) 0.07 K/uL (0-0.50) 06/04/22 09:20 Baso # (Auto) 0.03 K/uL (0-0.2) 06/04/22 09:20 Immature Gran # (Auto) 0.07 K/uL (0.00-0.02) H 06/04/22 09:20 Sodium 136 mmol/L (136-145) 06/04/22 09:20 Potassium 3.7 mmol/L (3.5-5.1) 06/04/22 09:20 Chloride 106 mmol/L (98-107) 06/04/22 09:20 Carbon Dioxide 21 mmol/L (21-32) 06/04/22 09:20 Anion Gap 9 (3-11) 06/04/22 09:20 BUN 14 mg/dl (6-23) 06/04/22 09:20 Creatinine 0.74 mg/dl (0.6-1.2) 06/04/22 09:20 Est Cr Clr Drug Dosing 132.1 ml/min 06/04/22 09:20 Est GFR ( Amer) 119.1 ml/min 06/04/22 09:20 Est GFR (Non-Af Amer) 102.8 ml/min 06/04/22 09:20 BUN/Creatinine Ratio 18.9 (10-20) 06/04/22 09:20 Glucose 91 mg/dl (70-99(Fasting)) 06/04/22 09:20 POC Glucose 79 mg/dl (70-99) 06/04/22 20:34 Estimat Average Glucose 114 mg/dl 06/04/22 09:20 Hemoglobin A1c 5.6 % (4.5-5.6) 06/04/22 09:20 Calcium 8.9 mg/dl (8.5-10.1) 06/04/22 09:20 Total Bilirubin 0.3 mg/dl (0.2-1.0) 06/04/22 09:20 AST 11 U/L (13-39) L 06/04/22 09:20 ALT 6 U/L (7-52) L 06/04/22 09:20 Alkaline Phosphatase 127 U/L (34-104) H 06/04/22 09:20 Total Protein 6.3 gm/dl (6.0-8.3) 06/04/22 09:20 Albumin 3.4 gm/dl (3.4-5.0) 06/04/22 09:20 Globulin 2.9 gm/dl (2.5-4.0) 06/04/22 09:20 Albumin/Globulin Ratio 1.2 (0.9-2) 06/04/22 09:20 SARS-CoV-2, RNA, NAAT NEGATIVE (NEGATIVE) 06/04/22 09:20 Blood Type O Positive 06/04/22 09:20 Antibody Screen NEGATIVE 06/04/22 09:20 Crossmatch See Detail 06/04/22 09:20 Impressions Obstetrics Ultrasound 06/04/22 09:49 ULTRASOUND LIMITED CLINICAL HISTORY: Suspect macrosomia. COMPARISON STUDY: No priors. FINDINGS: Real-time grayscale and color Doppler sonography of the fetus and gravid uterus is performed. There is a single live uterine gestation with a heart rate of 155 bpm. Positioning is cephalic. The placenta is located laterally on the left and grossly unremarkable. The cervix is not well visualized. The largest pocket of amniotic fluid measures 10.1 cm. Femoral length measures 8.47 cm. This measurement is out of range for calculation of dates. The abdominal circumference measures 36.67 cm corresponding to an estimated age of 40 weeks 4 days. The biparietal diameter measures 10.29 cm which is out of range for calculation of dates. The head circumference measures 37.55 cm which is out of range for calculation of dates. weight is estimated at 4607 g +/-691 g. Estimation of dates is 40 weeks 5 days +/- 3 weeks 5 days. IMPRESSION: 1. There is a single live intrauterine gestation with measurements as above. 2. The largest pocket of amniotic fluid measures 10.1 cm. 3. Note that this does not constitute a dedicated anatomic scan. Dictated: 06/04/2022 11:56 AM Transcribed: 06/04/2022 12:56 PM Alvina [id number] [email or web address] Electronically signed by: Yung Padgett M.D. 06/04/2022 1:15 PM
[2022-06-06] MEDS: DOCUSATE SODIUM 100 MG CAP PO SCH (08:02)
[2022-06-06] MEDS: FERROUS SULFATE 325 MG TAB PO SCH (08:02)
[2022-06-06] MEDS: PRENATAL VITAMIN 1 TAB PO SCH (08:02)
[2022-06-06] MEDS: IBUPROFEN 600 MG TAB PO PRN (08:02)
[2022-06-06] MEDS ORDERED: bisacodyL 5 MG TABEC PO SCH (20:00)
== END 2022-06-06 12:50 | disposition home or self-care (01) | DRG 807 ==
LOC: 4S1 06-04 07:43 → 4E2 06-05 04:11